=== PATIENT | female | born 1960 | race Caucasian/White ===

== ENCOUNTER → 2017-08-18 16:54 | Outpatient (CLI) | payer OTHER, SELFPAY ==
[2017-08-18 18:37] LABS: Estradiol 17.4 pg/mL
[2017-08-18 19:11] LABS: Progesterone Level 0.11 ng/mL (See Comment)
[2017-08-24 15:35] LABS: HPV Reflexed? NOT INDICATED
== END ==
PROVIDERS: Visit Provider Obstetrics & Gynecology
DX: Z12.4 Encounter for screening for malignant neoplasm of cervix (principal); N95.1 Menopausal and female climacteric states
CPT/HCPCS: 36415; 82670; 84144; 88175; G0145

== ENCOUNTER → 2017-09-13 13:17 | Outpatient (CLI) | payer OTHER, SELFPAY ==
--- NOTE | 2017-09-13 13:21 | HPBI_ITS ---
MAMMOGRAPHY - BILATERAL SCREENING REASON FOR EXAM: Female, 57 years old. Routine annual screening examination. PERTINENT HISTORY: Non-contributory. TECHNIQUE: Digital bilateral breast kristopher (3D mammographic acquisition) in the CC and MLO projections. 2-D mediolateral oblique (MLO) and craniocaudad (CC) views of both breasts were obtained. CAD: Full Field Digital Mammography with Computer Added Detection was performed. COMPARISON: Comparison is made with prior outside examination dated May 19, 2016. FINDINGS: Breast Composition: The breasts are heterogeneously dense, which may obscure small masses. There are no dominant masses or suspicious calcifications. No other significant abnormalities are identified. There has been no significant change since the prior study. HPBI/SCREENING MAMM (CAD), BILAT IMPRESSION: Stable bilateral screening mammogram. Yearly follow-up mammogram recommended. (A) ASSESSMENT CATEGORY: BIRADS Category 1: Negative. A letter regarding these results will be sent to the patient by the facility within 30 days. Approximately 10% of breast cancers are not detected by mammography. A normal mammogram should not delay biopsy of a clinically suspicious abnormality. [id number] Electronically Signed: Franc Keller MD at 8:37 EDT Tel [phone], Service support ,
== END ==
PROVIDERS: Family Provider Family Medicine; PCP Family Medicine; Visit Provider Obstetrics & Gynecology
DX: Z12.31 Encounter for screening mammogram for malignant neoplasm of breast (principal)
CPT/HCPCS: 77063; 77067

== ENCOUNTER → 2017-10-07 12:11 | Outpatient (CLI) | payer OTHER, SELFPAY ==
--- NOTE | 2017-10-07 12:16 | MRI_ITS ---
STUDY: BILATERAL BREAST MR WITHOUT AND WITH CONTRAST REASON FOR EXAM: Female, 57 years old. History of dense breasts. Family history of ovarian cancer. TECHNIQUE: Multi-sequence multi-echo imaging of both breasts was performed with a dedicated breast coil. T1-weighted and T2-weighted images were performed before the administration of contrast. T1-weighted images were also performed after the administration of 7 mL of Gadavist contrast intravenously without complications. COMPARISON: Bilateral mammograms dated September 13, 2017. FINDINGS: RIGHT BREAST: The breast tissue is scattered fibroglandular densities with minimal background enhancement. There are no abnormal enhancing masses or areas of non-mass enhancement in the right breast. LEFT BREAST: The breast tissue is scattered fibroglandular densities with minimal background enhancement. There are no abnormal enhancing masses or areas of non-mass enhancement in the left breast. There are no enlarged or abnormal lymph nodes. There is no abnormality in the visualized regions of the chest or liver. MRI/Breast w/o and/or W Cont Bilat IMPRESSION: Unremarkable breast MR examination with contrast. CATEGORY: BIRADS Category 1: Negative. A letter regarding these results will be sent to the patient by the facility within 30 days. Electronically Signed: Mic Rolon MD at 16:13 EDT , Service support ,
== END ==
PROVIDERS: Family Provider Family Medicine; PCP Family Medicine; Visit Provider Obstetrics & Gynecology
DX: R92.2 Inconclusive mammogram (principal); Z80.41 Family history of malignant neoplasm of ovary
CPT/HCPCS: 77059; A9585; A4216; C8908

== ENCOUNTER → 2018-10-13 10:07 | Outpatient (CLI) | payer OTHER, SELFPAY ==
--- NOTE | 2018-10-13 10:12 | BI_ITS ---
MAMMOGRAPHY - BILATERAL SCREENING REASON FOR EXAM: Female, 58 years old. Routine annual screening examination. PERTINENT HISTORY: Non-contributory. TECHNIQUE: Digital bilateral breast kristopher (3D mammographic acquisition) in the CC and MLO projections. 2-D mediolateral oblique (MLO) and craniocaudad (CC) views of both breasts were obtained. CAD: Full Field Digital Mammography with Computer Added Detection was performed. COMPARISON: Comparison is made with prior study dated September 13, 2017. FINDINGS: Breast Composition: The breasts are heterogeneously dense, which may obscure small masses. There are no dominant masses or suspicious calcifications. No other significant abnormalities are identified. There has been no significant change since the prior study. BI/SCREENING MAMM (CAD), BILAT IMPRESSION: Stable bilateral screening mammogram. Yearly follow-up mammogram recommended. (A) ASSESSMENT CATEGORY: BIRADS Category 1: Negative. A letter regarding these results will be sent to the patient by the facility within 30 days. Approximately 10% of breast cancers are not detected by mammography. A normal mammogram should not delay biopsy of a clinically suspicious abnormality. [id number] Electronically Signed: Franc Keller, at 11:16 EDT , Service support ,
== END ==
PROVIDERS: Family Provider Family Medicine; PCP Family Medicine; Referring Provider Obstetrics & Gynecology; Visit Provider Obstetrics & Gynecology
DX: Z12.31 Encounter for screening mammogram for malignant neoplasm of breast (principal)
CPT/HCPCS: 77063; 77067

== ENCOUNTER → 2020-01-31 12:11 | Outpatient (CLI) | payer OTHER, SELFPAY ==
--- NOTE | 2020-01-31 12:14 | BI_ITS ---
MAMMOGRAPHY - BILATERAL SCREENING REASON FOR EXAM: Female, 59 years old. Routine annual screening examination. PERTINENT HISTORY: Non-contributory. TECHNIQUE: Digital bilateral breast liliya (3D mammographic acquisition) in the CC and MLO projections. 2-D mediolateral oblique (MLO) and craniocaudad (CC) views of both breasts were obtained. CAD: Full Field Digital Mammography with Computer Added Detection was performed. COMPARISON: Comparison is made with prior study dated 10/13/2018 and 09/13/2017. FINDINGS: Breast Composition: The breasts are heterogeneously dense, which may obscure small masses. There are no dominant masses or suspicious calcifications. No other significant abnormalities are identified. There has been no significant change since the prior study. BI/SCREEN MAMM (CAD) W/LILIYA BILAT IMPRESSION: Stable bilateral screening mammogram. Yearly follow-up mammogram recommended. (A) ASSESSMENT CATEGORY: BIRADS Category 1: Negative. A letter regarding these results will be sent to the patient by the facility within 30 days. Approximately 10% of breast cancers are not detected by mammography. A normal mammogram should not delay biopsy of a clinically suspicious abnormality. [id number] Electronically Signed: Franc Keller, at 13:17 EDT , Service support ,
== END ==
PROVIDERS: PCP Family Medicine; Referring Provider Obstetrics & Gynecology; Visit Provider Obstetrics & Gynecology
DX: Z12.31 Encounter for screening mammogram for malignant neoplasm of breast (principal)
CPT/HCPCS: 77063; 77067

== ENCOUNTER → 2020-02-22 15:38 | Outpatient (CLI) | payer OTHER, SELFPAY ==
--- NOTE | 2020-02-22 15:58 | BD_ITS ---
STUDY: DUAL ENERGY X-RAY ABSORPTIOMETRY / DXA REASON FOR EXAM: Female, 59 years old. Age of total hysterectomy 38. Pat is 135.9# and 63 and quot; a loss of .5 and quot; per pat. Has taken premarin in the past. Past hx of smoking. Takes levothyroxin. Takes a multi-vit and a calcium supple off and on. Mom has osteo. Exercises a little. TECHNIQUE: Bone Mineral Density (BMD) measurements of lumbar spine and bilateral hips were obtained. COMPARISON: None. FINDINGS: Lumbar Spine (L1-L4): g/cm2 (0.874) / T-score (-2.4) / Z-score (-1.3) Findings are suggestive of osteopenia with a high fracture risk. Left Femur Total: g/cm2 (0.899) / T-score (-0.9) / Z-score (0.0) Left Femoral Neck: g/cm2 (0.739) / T-score (-2.2) / Z-score (-1.0) Right Femur Total: g/cm2 (0.895) / T-score (-0.9) / Z-score (0.0) Right Femoral Neck: g/cm2 (0.722) / T-score (-2.3) / Z-score (-1.1) BD/Dexa Bone Density Study IMPRESSION: The patient is considered osteopenic as outlined below according to World Jeremy Organization (WHO) criteria with a high fracture risk. Reference Information: The T-score is the number of standard deviations above or below the standard which is normal for young adults at their peak bone mineral density. The World Health Organization (WHO) interprets the T-scores as follows: Above -1 Normal bone density Between -1 and -2.5 Osteopenia Equal to / or below -2.5 Osteoporosis As a practical clinical guideline, osteopenia may be graded as follows: Mild -1 through -1.5 Moderate -1.6 through -2.0 Severe -2.1 through -2.4 The Z-score is the number of standard deviations above or below age-matched controls. A Z-score of less than -1.5 would be considered abnormal. References: 1. NIH Osteoporosis and Related Bone Diseases http://www.osteo.org 2. International Society for Clinical Densitometry http://www.iscd.org 3. National Osteoporosis Foundation http://www.nof.org Electronically Signed: Franc Keller, at 15:52 EDT , Service support ,
== END ==
PROVIDERS: PCP Family Medicine; Referring Provider Obstetrics & Gynecology; Visit Provider Obstetrics & Gynecology
DX: Z78.0 Asymptomatic menopausal state (principal)
CPT/HCPCS: 77080

== ENCOUNTER → 2021-02-12 13:13 | Outpatient (CLI) | payer OTHER, SELFPAY ==
--- NOTE | 2021-02-12 13:15 | BI_ITS ---
MAMMOGRAPHY - BILATERAL SCREENING REASON FOR EXAM: Female, 60 years old. Routine annual screening examination. PERTINENT HISTORY: Non-contributory. TECHNIQUE: Digital bilateral breast liliya (3D mammographic acquisition) in the CC and MLO projections. 2-D mediolateral oblique (MLO) and craniocaudad (CC) views of both breasts were obtained. CAD: Full Field Digital Mammography with Computer Added Detection was performed. COMPARISON: Comparison is made with prior examination dated 01/31/2020 and 10/13/2018. FINDINGS: Breast Composition: The breasts are heterogeneously dense, which may obscure small masses. There are no dominant masses or suspicious calcifications. No other significant abnormalities are identified. There has been no significant change since the prior study. BI/SCRN MAMM (CAD)W/LILIYA BILAT IMPRESSION: Stable bilateral screening mammogram. Yearly follow-up mammogram recommended. (A) ASSESSMENT CATEGORY: BIRADS Category 1: Negative. A letter regarding these results will be sent to the patient by the facility within 30 days. Approximately 10% of breast cancers are not detected by mammography. A normal mammogram should not delay biopsy of a clinically suspicious abnormality. [id number] Electronically Signed: Franc Keller MD at 14:11 EDT , Service support ,
== END ==
PROVIDERS: PCP Family Medicine; Referring Provider Obstetrics & Gynecology; Visit Provider Obstetrics & Gynecology
DX: Z12.31 Encounter for screening mammogram for malignant neoplasm of breast (principal)
CPT/HCPCS: 77063; 77067

== ENCOUNTER → 2022-03-31 | Outpatient (CLI) | payer OTHER, SELFPAY ==
--- NOTE | 2022-03-31 14:15 | BI_ITS ---
MAMMOGRAPHY - BILATERAL SCREENING REASON FOR EXAM: Female, 62 years old. Routine annual screening examination. PERTINENT HISTORY: Non-contributory. TECHNIQUE: Digital bilateral breast liliya (3D mammographic acquisition) in the CC and MLO projections. 2-D mediolateral oblique (MLO) and craniocaudad (CC) views of both breasts were obtained. CAD: Full Field Digital Mammography with Computer Added Detection was performed. COMPARISON: Comparison is made with prior study dated 02/12/2021 and 01/31/2020. FINDINGS: Breast Composition: The breasts are heterogeneously dense, which may obscure small masses. There are no dominant masses or suspicious calcifications. Stable small benign appearing bilateral axillary lymph nodes. No other significant abnormalities are identified. There has been no significant change since the prior study. BI/SCRN MAMM (CAD)W/LILIYA BILAT IMPRESSION: Stable bilateral screening mammogram. Yearly follow-up mammogram recommended. (A) ASSESSMENT CATEGORY: BIRADS Category 2: Benign. A letter regarding these results will be sent to the patient by the facility within 30 days. Approximately 10% of breast cancers are not detected by mammography. A normal mammogram should not delay biopsy of a clinically suspicious abnormality. [id number] Electronically Signed: Franc Keller MD at 15:10 EDT ,
--- NOTE | 2022-03-31 14:24 | BD_ITS ---
STUDY: DUAL ENERGY X-RAY ABSORPTIOMETRY / DXA REASON FOR EXAM: Female, 62 years old. M85.89. Patient is postmenopausal. TECHNIQUE: Bone Mineral Density (BMD) measurements of lumbar spine and bilateral hips were obtained. COMPARISON: Comparison is made with prior study 02/22/2020. FINDINGS: Lumbar Spine (L1-L4): g/cm2 (0.840) / T-score (-1.9) / Z-score (-0.4) Findings are suggestive of osteopenia with a moderate fracture risk. Left Femur Total: g/cm2 (0.831) / T-score (-0.9) / Z-score (0.1) Left Femoral Neck: g/cm2 (0.540) / T-score (-2.8) / Z-score (-1.5) Right Femur Total: g/cm2 (0.801) / T-score (-1.2) / Z-score (-0.2) Right Femoral Neck: g/cm2 (0.532) / T-score (-2.9) / Z-score (-1.5) The T-Scores on the most recent prior examination were: Lumbar Spine (L1-L4): There has been worsening of bone density since the previous examination. Left Femur Total: which represents a worsening of 0.7%. Right Femur Total: which represents a worsening of 3.7%. BD/Dexa Bone Density Study IMPRESSION: The patient is considered osteoporotic as outlined below according to World [employer] Organization (WHO) criteria with a high fracture risk. There has been worsening of bone density since the previous examination. Reference Information: The T-score is the number of standard deviations above or below the standard which is normal for young adults at their peak bone mineral density. The World Health Organization (WHO) interprets the T-scores as follows: Above -1 Normal bone density Between -1 and -2.5 Osteopenia Equal to / or below -2.5 Osteoporosis As a practical clinical guideline, osteopenia may be graded as follows: Mild -1 through -1.5 Moderate -1.6 through -2.0 Severe -2.1 through -2.4 The Z-score is the number of standard deviations above or below age-matched controls. A Z-score of less than -1.5 would be considered abnormal. References: 1. NIH Osteoporosis and Related Bone Diseases www osteo.org 2. International Society for Clinical Densitometry www iscd.org 3. National Osteoporosis Foundation www nof.org Electronically Signed: Franc Keller MD at 13:39 EDT ,
== END | disposition home or self-care (01) ==
LOC: OPBD 14:13
PROVIDERS: PCP Family Medicine; Visit Provider Family Medicine
DX: M81.0 Age-related osteoporosis without current pathological fracture (principal); M85.89 Other specified disorders of bone density and structure, multiple sites; Z78.0 Asymptomatic menopausal state; Z12.31 Encounter for screening mammogram for malignant neoplasm of breast
CPT/HCPCS: 77063; 77067; 77080